=== PATIENT | female | born 1955 | race African-American/Black ===

== ENCOUNTER 2019-04-15 13:25 | Inpatient (IN) | payer OTHER ==
--- NOTE | 2019-04-15 14:14 | PDOC ---
History of Present Illness - General Chief Complaint: Weakness Stated Complaint: FALL Time Seen by Provider: 04/15/19 14:10 - History of Present Illness Initial Comments: 04/15/19 14:14 HPI: 64 y/o F with hx of sciatica BIBEMS for fall. Patient states she was walking on her way to work when both her legs gave out on her and she fell forward on to her hands and knees. She felt weakness in BL LE and was not able to get up without assist. Bystanders called EMS. She denied LOC, head trauma, chest pain, WOOD, dizziness, vertigo, SOB, muscle aches, abd pain, n/v, diaphoresis, dysuria. Patient is otherwise in her normal state of health and is tolerating PO; denies any recent travel or viral illness. PMHx: as noted above ROS: as noted SHx: 1 pack q2-3days tobacco use; occasional alcohol use; no rec drugs Allergies: NKDA ROS: GENERAL/CONSTITUTIONAL: No fever or chills. +LE weakness. HEAD, EYES, EARS, NOSE AND THROAT: No change in vision. No ear pain or discharge. No sore throat. CARDIOVASCULAR: No chest pain or shortness of breath RESPIRATORY: No cough, wheezing, or hemoptysis. GASTROINTESTINAL: No nausea, vomiting, diarrhea or constipation. GENITOURINARY: No dysuria, frequency, or change in urination. MUSCULOSKELETAL: No joint or muscle swelling or pain. No neck or back pain. SKIN: No rash NEUROLOGIC: No headache, vertigo, loss of consciousness. ENDOCRINE: No increased thirst. No abnormal weight change HEMATOLOGIC/LYMPHATIC: No anemia, easy bleeding, or history of blood clots. ALLERGIC/IMMUNOLOGIC: No hives or skin allergy. PE: GENERAL: Awake, alert, and fully oriented, no acute distress HEAD: No signs of trauma, normocephalic, atraumatic EYES: EOMI, sclera anicteric, conjunctiva clear ENT: Auricles normal inspection, hearing grossly normal, nares patent, oropharynx clear without exudates. Moist mucosa NECK: Normal ROM, no lymphadenopathy LUNGS: No increased work of breathing, symmetrical chest rise, clear to auscultation bilaterally, no wheezes, crackles or rhonchi HEART: Regular rate, regular rhythm, normal S1 and S2, systolic murmur right upper sternal border, peripheral pulses 2+ and equal bilaterally. ABDOMEN: Soft, nondistended, nontender, normoactive bowel sounds. No guarding, no rebound. No masses. No CVAT MUSCULOSKELETAL: Normal inspection, FROM NEUROLOGICAL: Cranial nerves II through XII grossly intact. Normal speech, negative FTN and HTS ataxia, gait unsteady 2/2 weakness; 3/5 str in BL hip flexors with remaining LE muscle groups 5/5 str SKIN: Warm, Dry, normal turgor, no rashes or lesions noted Past History - Past Medical History Allergies/Adverse Reactions: Allergies Allergy/AdvReac Type Severity Reaction Status Date / Time No Known Allergies Allergy Verified 04/15/19 13:50 COPD: No - Psycho Social/Smoking Cessation Hx Smoking History: Current every day smoker Have you smoked in the past 12 months: Yes Number of Cigarettes Smoked Daily: 5 Information on smoking cessation initiated: Yes Hx Alcohol Use: No Drug/Substance Use Hx: No *Physical Exam - Vital Signs Last Vital Signs Temp Pulse Resp BP Pulse Ox 98.3 F 102 H 18 173/104 H 96 04/15/19 13:48 04/15/19 13:48 04/15/19 13:48 04/15/19 13:48 04/15/19 13:48 ED Treatment Course - LABORATORY CBC & Chemistry Diagram: 04/15/19 15:00 04/15/19 15:00 Medical Decision Making - Medical Decision Making 04/15/19 15:10 64 y/o F with hx of sciatica BIBEMS for fall 2/2 to BL LE weakness. BP 173/104 HR 102, AF. PE notable for systolic murmur and 3/5 str in BL hip flexors. DDx includes TIA, arrhythmia, lyte abnormality, GBS, spinal stenosis, cauda equina. Cauda equina less likely given no signs of red flags i.e. incontinence, back pain, sensation changes. -cbc, cmp, coags, cardiac prof, bnp, ekg, cxr -ct head, CT C/T/L -neuro consult 04/15/19 20:57 CT with L4/5 moderate compression Gluc 400 and trop 0.15 repeat trop 0.34 and glu [address] Lazo 04/15/19 20:[address] Lovelace recommending MRI brain, C/T/L spine will consult Dr Shellie Lazo made aware 04/15/19 21:[address] Hensley; recommending trend trop q4hr and MRI brain to ruleout cva; tropinemia may be seen as a result of CVA discussed with MRI team and will accept patient for stat MRI 04/15/19 22:50 Brain MRI negative Discharge - Discharge Information Problems reviewed: Yes Clinical Impression/Diagnosis: Elevated troponin, Hyperglycemia Leg weakness Qualifiers: Laterality: bilateral Qualified Code(s): R29.898 - Other symptoms and signs involving the musculoskeletal system Condition: Guarded - Follow up/Referral - Patient Discharge Instructions - Post Discharge Activity
--- NOTE | 2019-04-15 14:50 | PDOC ---
Documentation entered by Mamta Torrez SCRIBE, acting as scribe for Jorge Tay MD. Jorge Tay MD: This documentation has been prepared by the Lore ortiz Brenda, SCRIBE, under my direction and personally reviewed by me in its entirety. I confirm that the documentation accurately reflects all work, treatment, procedures, and medical decision making performed by me. Attending Attestation - Resident Resident Name: Elle Hernández - ED Attending Attestation I have performed the following: I have examined & evaluated the patient, The case was reviewed & discussed with the resident, I agree w/resident's findings & plan, Exceptions are as noted - HPI HPI: 04/15/19 14:50 64 F with h/o sciatica presents to ED with fall and BLE weakness. Pt states that she was ambulating at work when she suddenly felt her legs weaken, causing her to fall to the ground. Pt denies any preceding lightheadedness/dizziness. Denies headstrike/LOC. Pt states that she was in her usual state of health this morning. Denies any weakness prior to the fall. Pt now complains of weakness in both legs preventing her from getting up on her own. Denies any weakness in either arm. No numbness/tingling. No incontinence. Pt denies any recent illness. No N/V/D. No CP/SOB. No abdominal pain. - Physicial Exam PE: 04/15/19 14:54 "GENERAL: Awake, alert, and fully oriented, in no acute distress. HEAD: No signs of trauma EYES: PERRLA, EOMI, sclera anicteric, conjunctiva clear ENT: Auricles normal inspection, hearing grossly normal, nares patent, oropharynx clear without exudates. Moist mucosa NECK: Nontender, no stepoffs, Normal ROM, supple, no lymphadenopathy, JVD, or masses LUNGS: Breath sounds equal, clear to auscultation bilaterally. No wheezes, and no crackles HEART: Regular rate and rhythm, normal S1 and S2, no murmurs, rubs or gallops ABDOMEN: Soft, nontender, normoactive bowel sounds. No guarding, no rebound. No masses EXTREMITIES: Normal range of motion, no edema. No clubbing or cyanosis. No cords, erythema, or tenderness NEUROLOGICAL: + diminished strength with BILATERAL hip and knee flexion, full pedal strength with dorsiflexion and plantarflexion, Cranial nerves II through XII intact. 5/5 strength and sensation in bilateral upper extremities, Normal speech, normal cerebellar function SKIN: Warm, Dry, normal turgor, no rashes or lesions noted. - Medical Decision Making 04/15/19 14:55 64 F with acute onset BLE weakness. Pt with weakness in BLE hip and knee flexion but preserved strength in bilateral plantar and dorsiflexion of feet. Inconsistent with CVA, as pt with no lateralizing symptoms. Possible GBS but atypical, as symptoms are not ascending. - Labs - CT head/c-t-l-spine - Neuro consult Pt signed out to oncoming attending at 4:30, pending labs, CT, and admission to hospital
[2019-04-15 15:57] LABS: BASO % 0.9 % (0-2.0); EOS % 1.9 % (0-4.5); HEMATOCRIT 41.2 % (32.4-45.2); HEMOGLOBIN 13.5 GM/dL (10.7-15.3); LYMPH % 18.9 % (8-40); MCHC 32.7 g/dl (32.0-36.0); MEAN CELL VOLUME 82.6 fl (80-96); MEAN PLT VOLUME 8.3 fl (7.5-11.1); MONO % 6.2 % (3.8-10.2); NEUT % 72.1 % (42.8-82.8); PLATELET COUNT 285 K/MM3 (134-434); RBC 4.98 M/mm3 (3.60-5.2); RDW 14.3 % (11.6-15.6); WHITE BLOOD COUNT 7.7 K/mm3 (4.0-10.0)
[2019-04-15 16:21] LABS: ACTIVATED PTT 31.7 SECONDS (25.2-36.5)
[2019-04-15 16:30] LABS: INR 0.89 (0.83-1.09); PROTHROMBIN TIME (PATIENT) 10.5 SEC (9.7-13.0)
[2019-04-15 16:35] LABS: BILIRUBIN,TOTAL 0.3 mg/dL (0.2-1); BLOOD UREA NITROGEN 17.3 mg/dL (7-18); CALCIUM 9.5 mg/dL (8.5-10.1); MAGNESIUM 2.2 mg/dL (1.8-2.4); N-TERMINAL BNP 116.5 pg/ml (5-125); PHOSPHOROUS 2.4 mg/dL (2.5-4.9); POTASSIUM 4.5 mmol/L (3.5-5.1); TOT PROT 7.4 g/dl (6.4-8.2)
[2019-04-15] MEDS ORDERED: ASPIRIN 81 MG CHEWABLE TABLETS PO ONE (18:10)
[2019-04-15] MEDS ORDERED: SODIUM CHLORIDE 1,000 ML IV STA (18:11)
[2019-04-15] MEDS ORDERED: ASPIRIN 81 MG CHEWABLE TABLETS ONE (18:23)
--- NOTE | 2019-04-15 22:39 | HP ---
Admitting History and Physical - Admission History of Present Illness: Pt is a 64 y/o female with PMH significant for sciatica who presented to ED with fall and BLE weakness. Pt states that she was ambulating to work when she suddenly felt her legs weaken, causing her to fall to the ground. Pt was than unable to get up. Pt denies any preceding lightheadedness/dizziness. Denies head trauma/LOC. Pt states that she was in her usual state of health that morning. Denies any weakness prior to the fall. Pt now complains of weakness in both legs preventing her from getting up on her own. Denies any weakness in either arm/No numbness/no tingling/no incontinence. - Past Surgical History Past Surgical History: Yes: None - Smoking History Smoking history: Current every day smoker Have you smoked in the past 12 months: Yes Aproximately how many cigarettes per day: 5 - Alcohol/Substance Use Hx Alcohol Use: No Home Medications - Allergies Allergies/Adverse Reactions: Allergies Allergy/AdvReac Type Severity Reaction Status Date / Time No Known Allergies Allergy Verified 04/15/19 13:50 Family Medical History Family History: Unremarkable Review of Systems - Review of Systems Constitutional: reports: Weakness Eyes: reports: No Symptoms HENT: reports: No Symptoms Neck: reports: No Symptoms Cardiovascular: reports: No Symptoms Respiratory: reports: No Symptoms Gastrointestinal: reports: No Symptoms Genitourinary: reports: No Symptoms Physical Examination Vital Signs: Vital Signs Temperature 98.3 F 04/15/19 13:48 Pulse Rate 102 H 04/15/19 13:48 Respiratory Rate 18 04/15/19 13:48 Blood Pressure 173/104 H 04/15/19 13:48 O2 Sat by Pulse Oximetry (%) 96 04/15/19 20:59 Constitutional: Yes: Well Nourished Eyes: Yes: WNL HENT: Yes: WNL Neck: Yes: WNL, Supple Cardiovascular: Yes: WNL, Regular Rate and Rhythm Respiratory: Yes: WNL, Regular, CTA Bilaterally Gastrointestinal: Yes: WNL, Normal Bowel Sounds, Soft Musculoskeletal: Yes: WNL Extremities: Yes: WNL Edema: No Neurological: Yes: WNL, Alert, Oriented ...Motor Strength: WNL Labs: CBC, BMP 04/15/19 15:00 04/15/19 15:00 Problem List - Problems (1) Near syncope Assessment/Plan: CT/MRI brain unremarkable Neuro/cardio consults Follow serial cpk/troponin Check echo Code(s): R55 - SYNCOPE AND COLLAPSE (2) Elevated troponin Assessment/Plan: Cont to follow cpk/troponin Code(s): R79.89 - OTHER SPECIFIED ABNORMAL FINDINGS OF BLOOD CHEMISTRY (3) Lumbar radiculopathy Assessment/Plan: CT spine Code(s): M54.16 - RADICULOPATHY, LUMBAR REGION (4) New onset type 1 diabetes mellitus, uncontrolled Code(s): E10.65 - TYPE 1 DIABETES MELLITUS WITH HYPERGLYCEMIA
[2019-04-16 00:12] VITALS: BMI 28.4
[2019-04-16] MEDS: INSULIN SLIDING SCALE (NOVOLOG) 1 VIAL SQ SCH ×4 (06:08→22:19)
[2019-04-16 07:11] LABS: BASO % 1.1 % (0-2.0); EOS % 4.9 % (0-4.5); HEMATOCRIT 37.4 % (32.4-45.2); HEMOGLOBIN 12.4 GM/dL (10.7-15.3); LYMPH % 27.9 % (8-40); MCH 27.3 pg (25.7-33.7); MCHC 33.3 g/dl (32.0-36.0); MEAN CELL VOLUME 81.9 fl (80-96); MEAN PLT VOLUME 7.7 fl (7.5-11.1); MONO % 6.4 % (3.8-10.2); NEUT % 59.7 % (42.8-82.8); PLATELET COUNT 275 K/MM3 (134-434); RBC 4.56 M/mm3 (3.60-5.2); RDW 14.2 % (11.6-15.6); WHITE BLOOD COUNT 7.1 K/mm3 (4.0-10.0)
[2019-04-16 07:48] LABS: ALBUMIN 3.3 g/dl (3.4-5.0); BILIRUBIN,TOTAL 0.6 mg/dL (0.2-1); BLOOD UREA NITROGEN 14.2 mg/dL (7-18); CALCIUM 8.9 mg/dL (8.5-10.1); CREATININE 0.8 mg/dL (0.55-1.3); POTASSIUM 3.9 mmol/L (3.5-5.1); TOT PROT 6.2 g/dl (6.4-8.2)
[2019-04-16] MEDS: HEPARIN NA (PORCINE) 5,000 UNITS/ML 1ML VIAL SQ SCH ×2 (09:25→22:12)
[2019-04-16] MEDS: ASPIRIN COATED 81 MG TABLET.EC PO SCH (09:25)
--- NOTE | 2019-04-16 09:40 | CON.CARD ---
Consult Consult Specialty:: Cardiology Referred by:: Dr. Lazo Reason for Consultation:: TnI abnormal - History of Present Illness Chief Complaint: Bilateral leg weakness History of Present Illness: 64 F smoker presents to ER with acute b/l LE weakness and fall. No other focal neuro sx. No CP No SOB No palps No edema No jaw pain No nausea ECG: NSR, poor R wave progression MRI brain, no acute CVA- chronic old small infarcts Initially HTN, but now normalized. A1c markedly elevated. 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's, CVA, Dementia, Migraine, Multiple Sclerosis, Peripheral Neuropathy, Parkinson's, Seizure, Syncope, TIA, Vertigo, Other Cardio/Vascular: No: AFIB, Aneurysm, Aortic Insufficiency, Aortic Stenosis, CAD , CHF, Deep Vein Thrombosis, HTN, Hyperlipdemia, IA, Mitral Insufficiency, Mitral Stenosis, Murmur, Pulmonary Hypertension, Other Pulmonary: No: Asthma, Bronchitis, Cancer, COPD, O2 Dependent, Pneumonia, Previously Intubated, Pulmonary Embolus, Pulmonary Fibrosis, Sleep Apnea, Other Gastrointestinal: No: Ascites, Cancer, Constipation, Crohn's Disease, Diverticulitis, Diverticulosis, Esophageal Varices, Gastritis, GERD, GI Bleed, Hemorrhoids, Hiatal Hernia, Inflamatory Bowel Disease, Irritable Bowel Disease, Pancreatitis, Peptic Ulcer Disease, Ulcerative Colitis, Other Hepatobiliary: No: Cirrhosis, Cholelithiasis, Cholecystitis, Choledocholithiasis , Hepatitis A, Hepatitis B, Hepatitis C, Other Renal/: No: Renal Failure, Renal Inusuff, BPH, Cancer, Hematuria, Hemodialysis , Neurogenic Bladder, Renal Calculi, UTI, Other ...: No Heme/Onc: No: Anemia, B12 Deficiency, Bleeding Disorder, Cancer, Current Chemotherapy, Current Radiation Therapy, Hemochromatosis, Hypercoaguable State, Myeloproliferative Synd, Sickle Cell Disease, Sickle Cell Trait, Thrombocytopenia, Other Psych: No: Addictions, Anxiety, Bipolar, Depression, Panic, Psychosis, Schizophrenia, Other Musculoskeletal: No: Bursitis, Chronic low back pain, Hemiparesis, Hemiplegia, Osteoarthritis, Paraplegia, Other Rheumatology: No: Fibromyalgia, Gout, Lupus, Rheumatoid Arthritis, Sarcoidosis, Vasculitis, Other ENT: No: Allergic Rhinitis, Sinusitis, Other Endocrine: No: Archie's Disease, [place]'s Disease, Diabetes Insipidus, Diabetes Mellitus, Hyperparathyroidism, Hyperthyroidism, Hypothyroidism, Osteopenia, SIADH, Other - Past Surgical History Past Surgical History: No: None, AAA Repair, AICD, Amputation, Appendectomy, Arthrosocopy, AV Fistula/Graft, Bariatric Surgery, Breast Biopsy, Bypass, CABG, Carotid Endarterectomy, Cataract Removal, Cholecystectomy, Colectomy, Colonoscopy, Colostomy, Craniotomy, , Cystectomy, Hernia Repair, Hysterectomy, Ileal Conduit, Ileosotomy, Joint Replacement, Kidney Transplant, Laminectomy, Liver Transplant, Mastectomy, Nephrectomy, Oopherectomy, Orchiectomy, Permanent Pacemaker, Prostatectomy, Splenectomy, Stent, Thoracotomy , TURP, Tonsillectomy, Tubal Ligation, Upper Endoscopy, Valve Replacement, Vasectomy, Vein Stripping/Ligation - Alcohol/Substance Use Hx Alcohol Use: Yes (OCCASSIONAL) - Smoking History Smoking history: Current every day smoker Have you smoked in the past 12 months: Yes Aproximately how many cigarettes per day: 5 - Social History Occupation: works at [employer] History of Recent Travel: No Home Medications - Allergies Allergies/Adverse Reactions: Allergies Allergy/AdvReac Type Severity Reaction Status Date / Time No Known Allergies Allergy Verified 04/15/19 13:50 Family Medical History Family History: Unremarkable (non-contrib) Review of Systems - Review of Systems Constitutional: reports: No Symptoms Eyes: reports: No Symptoms HENT: reports: No Symptoms Neck: reports: No Symptoms Cardiovascular: reports: No Symptoms Respiratory: reports: No Symptoms Gastrointestinal: reports: No Symptoms Genitourinary: reports: No Symptoms Breasts: reports: No Symptoms Reported Musculoskeletal: reports: No Symptoms Neurological: reports: Weakness Endocrine: denies: No Symptoms, Excessive Sweating, Flushing, Increased Hunger, Increased Thirst, Intolerance to Cold, Intolerance to Heat, Unexplained Weight Gain, Unexplained Weight Loss, Other Hematology/Lymphatic: denies: No Symptoms, Easily Bruised, Excessive Bleeding, Swollen Glands, Other Psychiatric: denies: No Symptoms, Altered Sleep Pattern, Anxiety, Depression, Hallucinations, Panic, Paranoia, Suicidal, Other - Risk Factors Known Risk Factors: Yes: Diabetes Mellitus, Hypertension Vital Signs: Vital Signs Temperature 98.1 F 04/16/19 02:04 Pulse Rate 88 04/16/19 02:04 Respiratory Rate 18 04/16/19 02:04 Blood Pressure 156/87 04/16/19 02:04 O2 Sat by Pulse Oximetry (%) 98 04/16/19 01:19 Constitutional: Yes: Calm Respiratory: Yes: CTA Bilaterally Gastrointestinal: Yes: Soft Cardiovascular: Yes: Regular Rate and Rhythm JVD: No Carotid Bruit: No Heart Sounds: Yes: S1, S2 (rrr) Edema: No Neurological: Yes: Alert, Oriented - Other Data Labs, Other Data: CBC, BMP 04/16/19 06:23 04/16/19 06:23 INR, PTT INR 0.89 (0.83-1.09) 04/15/19 15:00 Troponin, BNP 04/15/19 04/15/19 15:00 19:20 Troponin I 0.15 H 0.34 H B-Natriuretic Peptide 116.5 Troponin, BNP 04/15/19 04/15/19 15:00 19:20 Troponin I 0.15 H 0.34 H B-Natriuretic Peptide 116.5 Laboratory Tests 04/15/19 04/15/19 04/15/19 15:00 15:00 19:20 WBC Hgb Plt Count INR 0.89 Sodium Potassium Creatinine Hemoglobin A1c % Alkaline Phosphatase Creatine Kinase 110 Troponin I 0.15 H 0.34 H 04/16/19 04/16/19 04/16/19 06:23 06:23 06:23 WBC 7.1 Hgb 12.4 Plt Count 275 INR Sodium 137 Potassium 3.9 Creatinine 0.8 Hemoglobin A1c % 14.6 H Alkaline Phosphatase 73 Creatine Kinase Troponin I Echo: Pending Imaging - Results Chest X-ray: Report Reviewed EKG: Image Reviewed (NSR 91bpm, Poor R wave progression, no acute changes) Assessment/Plan IMP: New onset DM LE weakness, lumbar stenosis (Brain MRI negative) Borderline HTN Equivocal range TnI REC: 1. Neuro w/u 2. Glucose control as per PMD 3. Echo for EF assessment. 4. Equivocal TnI with no cardiac sx and benign ECG. If echo WNL, can likely defer further cardiac w/u until neuro sx resolve. Eventual stress test once acute sx resolve/ more fully investigated. 5. Monitor BP, goal < 140/90 6. ASA if no neuro contraindication
--- NOTE | 2019-04-16 10:26 | CON.NEURO ---
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, CVA, Dementia, Migraine, Multiple Sclerosis, Peripheral Neuropathy, Parkinson's, Seizure, Syncope, TIA, Vertigo, Other Cardio/Vascular: No: AFIB, Aneurysm, Aortic Insufficiency, Aortic Stenosis, CAD , CHF, Deep Vein Thrombosis, HTN, Hyperlipdemia, VT, Mitral Insufficiency, Mitral Stenosis, Murmur, Pulmonary Hypertension, Other Pulmonary: No: Asthma, Bronchitis, Cancer, COPD, O2 Dependent, Pneumonia, Previously Intubated, Pulmonary Embolus, Pulmonary Fibrosis, Sleep Apnea, Other Gastrointestinal: No: Ascites, Cancer, Constipation, Crohn's Disease, Diverticulitis, Diverticulosis, Esophageal Varices, Gastritis, GERD, GI Bleed, Hemorrhoids, Hiatal Hernia, Inflamatory Bowel Disease, Irritable Bowel Disease, Pancreatitis, Peptic Ulcer Disease, Ulcerative Colitis, Other Hepatobiliary: No: Cirrhosis, Cholelithiasis, Cholecystitis, Choledocholithiasis , Hepatitis A, Hepatitis B, Hepatitis C, Other Renal/: No: Renal Failure, Renal Inusuff, BPH, Cancer, Hematuria, Hemodialysis , Neurogenic Bladder, Renal Calculi, UTI, Other ...: No Psych: No: Addictions, Anxiety, Bipolar, Depression, Panic, Psychosis, Schizophrenia, Other Musculoskeletal: No: Bursitis, Chronic low back pain, Hemiparesis, Hemiplegia, Osteoarthritis, Paraplegia, Other Rheumatology: No: Fibromyalgia, Gout, Lupus, Rheumatoid Arthritis, Sarcoidosis, Vasculitis, Other ENT: No: Allergic Rhinitis, Sinusitis, Other Endocrine: No: [place]'s Disease, Anthony's Disease, Diabetes Insipidus, Diabetes Mellitus, Hyperparathyroidism, Hyperthyroidism, Hypothyroidism, Osteopenia, SIADH, Other - Past Surgical History Past Surgical History: No: None, AAA Repair, AICD, Amputation, Appendectomy, Arthrosocopy, AV Fistula/Graft, Bariatric Surgery, Breast Biopsy, Bypass, CABG, Carotid Endarterectomy, Cataract Removal, Cholecystectomy, Colectomy, Colonoscopy, Colostomy, Craniotomy, , Cystectomy, Hernia Repair, Hysterectomy, Ileal Conduit, Ileosotomy, Joint Replacement, Kidney Transplant, Laminectomy, Liver Transplant, Mastectomy, Nephrectomy, Oopherectomy, Orchiectomy, Permanent Pacemaker, Prostatectomy, Splenectomy, Stent, Thoracotomy , TURP, Tonsillectomy, Tubal Ligation, Upper Endoscopy, Valve Replacement, Vasectomy, Vein Stripping/Ligation - Alcohol/Substance Use Hx Alcohol Use: Yes (OCCASSIONAL) - Smoking History Smoking history: Current every day smoker Have you smoked in the past 12 months: Yes Aproximately how many cigarettes per day: 5 - Social History Occupation: works at [email or web address] History of Recent Travel: No Home Medications - Allergies Allergies/Adverse Reactions: Allergies Allergy/AdvReac Type Severity Reaction Status Date / Time No Known Allergies Allergy Verified 04/15/19 13:50 Physical Exam-Neuro Vital Signs: Vital Signs Temperature 98.1 F 04/16/19 02:04 Pulse Rate 88 04/16/19 02:04 Respiratory Rate 18 04/16/19 02:04 Blood Pressure 156/87 04/16/19 02:04 O2 Sat by Pulse Oximetry (%) 98 04/16/19 01:19 Labs: CBC, BMP 04/16/19 06:23 04/16/19 06:23 INR, PTT INR 0.89 (0.83-1.09) 04/15/19 15:00 Assessment/Plan cc trasient leg weakness HPI 64 year old female history of sciatica, DM, was brought to hospital for both leg giving way and feeling weaknes. It came about suddenly. SHe denies any trauma, fall , cancer , fever. There was no incontinence or sensory loss in lower extremity. it was no gradual progression either. Patient is almot back to normal, mri of brain and ct of whole spine is normal. PMHx: as noted above ROS: as noted SHx: 1 pack q2-3days tobacco use; occasional alcohol use; no rec drugs Allergies: NKDA Medication Insulin, apsirin statin NEUROLOGICAL EXAMINATOIN Alert oriented x 3, cn all intact motor 5/5 in both upper and lower extremity she has slight sensory dysthesia on left lateral side of thigh and calf( old radiculopathy) reflex are preesnt, right knee is grade and left knee is grade 1 and ankle reflex is diminished slr is negative she is able to walk , difficulty on toes could do partial squat ct of whole spine and mri of brain wa sunremarkable Assessment/Plan 64 year old female with history of lumbar radiculopathy nad DM, has transient sudden onset both leg weakness wth hyper glycemia ( BS 400S), Most likley it could be transient ischemic due to hyperglycemia Plan: glycemic control - aspirin and statin - mri of whole spine is pending -pt continue to follow Thnaking you so much Mauricio Rockwell MD
--- NOTE | 2019-04-16 10:48 | ECHO ---
Name: JAS MORALES J Exam:Adult Echocardiogram Study Date: 04/16/2019 08:50 AM Age: 64 yrs Height: 66 in Weight: 190 lb BSA: 2.0 m2 MMode/2D Measurements & Calculations RVDd: 3.3 cm Ao root diam: 2.9 cm IVSd: 1.4 cm LA dimension: 3.1 cm LVIDd: 4.0 cm ACS: 1.9 cm LVIDs: 2.7 cm LVPWd: 1.4 cm EDV(Tyler): 70.4 ml LAV (MOD-bp): 54.0 ml ESV(Teich): 26.8 ml TAPSE: 2.2 cm RV S Boogie: 22.1 cm/sec Doppler Measurements & Calculations MV E max boogie: 55.3 cm/sec Ao V2 max: 141.2 cm/sec MV A max boogie: 108.6 cm/sec Ao max P.0 mmHg MV E/A: 0.51 Ao V2 mean: 95.5 cm/sec MV dec time: 0.12 sec Ao mean P.2 mmHg Ao V2 VTI: 22.2 cm LV V1 max P.7 mmHg TR max boogie: 226.7 cm/sec LV V1 mean P.7 mmHg TR max P.6 mmHg LV V1 max: 95.8 cm/sec LV V1 mean: 59.6 cm/sec LV V1 VTI: 18.5 cm PA V2 max: 92.3 cm/sec Med Peak E' Boogie: 5.8 cm/sec PA max P.4 mmHg Med E/e': 9.6 Lat Peak E' Boogie: 4.5 cm/sec Lat E/e': 12.3 Pulm Sys Boogie: 69.6 cm/sec Pulm Naidu Boogie: 39.5 cm/sec Pulm S/D: 1.8 Tech Comments Techician: Vida Cardoso. Left Ventricle There is mild concentric left ventricular hypertrophy. Ejection Fraction = 55-60%. The transmitral sp ectral Doppler flow pattern is suggestive of impaired LV relaxation. Right Ventricle The right ventricle is normal in size and function. Atria The left atrium is mildly dilated. Right atrial size is normal. Mitral Valve The mitral valve is normal in structure and function. There is no mitral valve stenosis. There is mil d mitral regurgitation. Tricuspid Valve The tricuspid valve is normal in structure and function. Aortic Valve The aortic valve opens well. No hemodynamically significant valvular aortic stenosis. Mild aortic regurgitation. Pulmonic Valve The pulmonic valve is not well seen, but is grossly normal. There is no pulmonic valvular stenosis. T race to mild pulmonic valvular regurgitation. Great Vessels The aortic root is normal size. Pericardium/Pleura There is no pericardial effusion. Interpretation Summary There is mild concentric left ventricular hypertrophy. Ejection Fraction = 55-60%. The transmitral spectral Doppler flow pattern is suggestive of impaired LV relaxation. The left atrium is mildly dilated. There is mild mitral regurgitation. Mild aortic regurgitation. There is no pericardial effusion. MD Mc *Shellie 04/16/2019 10:47 AM
--- NOTE | 2019-04-16 14:00 | EKG ---
Test Reason : Blood Pressure : / mmHG Vent. Rate : 089 BPM Atrial Rate : 089 BPM P-R Int : 150 ms QRS Dur : 084 ms QT Int : 378 ms P-R-T Axes : 053 -06 042 degrees QTc Int : 459 ms NORMAL SINUS RHYTHM POSSIBLE LEFT ATRIAL ENLARGEMENT WHEN COMPARED WITH ECG OF 15-APR-2019 15:22, NO SIGNIFICANT CHANGE WAS FOUND Confirmed by DANAY COREAS MD ([id number]) on 04/16/2019 1:59:51 PM Referred By: Confirmed By:DANAY COREAS MD
--- NOTE | 2019-04-16 14:07 | EKG ---
Test Reason : Blood Pressure : / mmHG Vent. Rate : 091 BPM Atrial Rate : 091 BPM P-R Int : 142 ms QRS Dur : 080 ms QT Int : 356 ms P-R-T Axes : 047 001 038 degrees QTc Int : 437 ms NORMAL SINUS RHYTHM POSSIBLE LEFT ATRIAL ENLARGEMENT POOR R WAVE PROGRESSION ABNORMAL ECG NO PREVIOUS ECGS AVAILABLE Confirmed by DANAY COREAS MD ([id number]) on 04/16/2019 2:06:56 PM Referred By: Confirmed By:DANAY COREAS MD
--- NOTE | 2019-04-16 21:36 | PN ---
Progress Note, Physician - Current Medication List Current Medications: Active Medications Aspirin (Ecotrin -) 81 mg PO DAILY [facility] Last Admin: 04/16/19 09:25 Dose: 81 mg Atorvastatin Calcium (Lipitor -) 40 mg PO HS [facility] Heparin Sodium (Porcine) (Heparin -) 5,000 unit SQ BID [facility] Last Admin: 04/16/19 09:25 Dose: 5,000 unit Insulin Aspart (Novolog Vial Sliding Scale -) 1 vial SQ ACHS [facility]; Protocol Last Admin: 04/16/19 15:37 Dose: 6 units - Objective Vital Signs: Vital Signs Temperature 98.3 F 04/16/19 18:00 Pulse Rate 105 H 04/16/19 18:00 Respiratory Rate 18 04/16/19 18:00 Blood Pressure 136/81 04/16/19 18:00 O2 Sat by Pulse Oximetry (%) 98 04/16/19 09:00 Labs: CBC, BMP 04/16/19 06:23 04/16/19 06:23 INR, PTT INR 0.89 (0.83-1.09) 04/15/19 15:00
[2019-04-16] MEDS: ATORVASTATIN CA 40 MG TABLET (FP) PO SCH (22:12)
[2019-04-17] MEDS: INSULIN SLIDING SCALE (NOVOLOG) 1 VIAL SQ SCH ×4 (06:49→23:01)
--- NOTE | 2019-04-17 09:05 | PN ---
Progress Note, Physician Chief Complaint: now walking around room Feels stronger. Denies CP or SOB Echo yest w/ normal EF, LVH. TELE: NSR. - Current Medication List Current Medications: Active Medications Aspirin (Ecotrin -) 81 mg PO DAILY [facility] Last Admin: 04/16/19 09:25 Dose: 81 mg Atorvastatin Calcium (Lipitor -) 40 mg PO HS [facility] Last Admin: 04/16/19 22:12 Dose: 40 mg Heparin Sodium (Porcine) (Heparin -) 5,000 unit SQ BID [facility] Last Admin: 04/16/19 22:12 Dose: 5,000 unit Insulin Aspart (Novolog Vial Sliding Scale -) 1 vial SQ ACHS [facility]; Protocol Last Admin: 04/17/19 06:49 Dose: 2 units - Objective Vital Signs: Vital Signs Temperature 98.1 F 04/17/19 01:59 Pulse Rate 104 H 04/17/19 01:59 Respiratory Rate 18 04/17/19 08:17 Blood Pressure 138/84 04/17/19 06:00 O2 Sat by Pulse Oximetry (%) 99 04/17/19 08:17 Constitutional: Yes: No Distress Cardiovascular: Yes: Regular Rate and Rhythm Respiratory: Yes: CTA Bilaterally Gastrointestinal: Yes: Soft (NT) Edema: No Neurological: Yes: Alert, Oriented ...Motor Strength: WNL Labs: CBC, BMP 04/16/19 06:23 04/16/19 06:23 INR, PTT INR 0.89 (0.83-1.09) 04/15/19 15:00 Laboratory Tests 04/15/19 04/15/19 15:00 19:20 Troponin I 0.15 H 0.34 H - ....Imaging EKG: Image Reviewed Assessment/Plan Assessment/Plan IMP: New onset DM LE weakness, lumbar stenosis (Brain MRI negative) Borderline HTN Equivocal range TnI REC: 1. Neuro w/u- transient weakness suspected secondary to marked hyperglycemia and resulting transient neuropathy 2. Glucose control as per PMD 3. Echo w normal EF, LVH. 4. Equivocal TnI with no cardiac sx and benign ECG. Obtain 3rd set enzymes; plan for Lexiscan MPI Friday. 5. BP currently at goal < 140/90 6. ASA as per Neuro 7. LDL 92; goal 70mg/dl (DM---> ASHD equivalent risk factor). Continue Atorva 40
[2019-04-17] MEDS: ASPIRIN COATED 81 MG TABLET.EC PO SCH (09:33)
[2019-04-17] MEDS: HEPARIN NA (PORCINE) 5,000 UNITS/ML 1ML VIAL SQ SCH ×2 (09:34→22:39)
--- NOTE | 2019-04-17 16:58 | PN ---
Progress Note (short form) - Note Progress Note: 64 year old female history of sciatica, DM, was brought to hospital for both leg giving way and feeling weaknes. It came about suddenly. SHe denies any trauma, fall , cancer , fever. There was no incontinence or sensory loss in lower extremity. it was no gradual progression either. Patient is almot back to normal, mri of brain and ct of whole spine is normal. Patient is feeling much better and able to walk around NEUROLOGICAL EXAMINATOIN Alert oriented x 3, cn all intact motor 5/5 in both upper and lower extremity she has slight sensory dysthesia on left lateral side of thigh and calf( old radiculopathy) reflex are preesnt, right knee is grade and left knee is grade 1 and ankle reflex is diminished slr is negative she is able to walk , difficulty on toes could do partial squat ct of whole spine and mri of brain wa sunremarkable Assessment/Plan 64 year old female with history of lumbar radiculopathy nad DM, has transient sudden onset both leg weakness wth hyper glycemia ( BS 400S), Most likley it could be transient ischemic due to hyperglycemia Plan: glycemic control - continue spirin and statin -pt continue to follow Thnaking you so much Mauricio Rockwell MD
[2019-04-17] MEDS: metFORMIN HCL 500 MG TABLET (FP) PO SCH (17:28)
--- NOTE | 2019-04-17 22:02 | PN ---
Progress Note, Physician - Current Medication List Current Medications: Active Medications Aspirin (Ecotrin -) 81 mg PO DAILY [facility] Last Admin: 04/17/19 09:33 Dose: 81 mg Atorvastatin Calcium (Lipitor -) 40 mg PO HS [facility] Last Admin: 04/16/19 22:12 Dose: 40 mg Heparin Sodium (Porcine) (Heparin -) 5,000 unit SQ BID [facility] Last Admin: 04/17/19 09:34 Dose: 5,000 unit Insulin Aspart (Novolog Vial Sliding Scale -) [address] [facility]; Protocol Last Admin: 04/17/19 17:28 Dose: 8 units Metformin HCl (Glucophage -) 1,000 mg PO BID@0700,1630 [facility] Last Admin: 04/17/19 17:28 Dose: 1,000 mg Sitagliptin Phosphate (Januvia -) 100 mg PO DAILY@0700 [facility] - Objective Vital Signs: Vital Signs Temperature 97.8 F 04/17/19 18:00 Pulse Rate 101 H 04/17/19 18:00 Respiratory Rate 20 04/17/19 18:00 Blood Pressure 158/96 04/17/19 18:00 O2 Sat by Pulse Oximetry (%) 99 04/17/19 08:17 Labs: CBC, BMP 04/16/19 06:23 04/16/19 06:23 INR, PTT INR 0.89 (0.83-1.09) 04/15/19 15:00
[2019-04-17] MEDS: ATORVASTATIN CA 40 MG TABLET (FP) PO SCH (23:01)
[2019-04-18] MEDS: INSULIN SLIDING SCALE (NOVOLOG) 1 VIAL SQ SCH ×4 (07:15→22:34)
[2019-04-18] MEDS: metFORMIN HCL 500 MG TABLET (FP) PO SCH ×2 (07:17→17:08)
--- NOTE | 2019-04-18 09:16 | PN ---
Progress Note, Physician Chief Complaint: feeling better Walking No CP or SOB TELE: NSR, sinus tach 3rd TNI normal - Current Medication List Current Medications: Active Medications Aspirin (Ecotrin -) 81 mg PO DAILY [facility] Last Admin: 04/17/19 09:33 Dose: 81 mg Atorvastatin Calcium (Lipitor -) 40 mg PO HS [facility] Last Admin: 04/17/19 23:01 Dose: 40 mg Heparin Sodium (Porcine) (Heparin -) 5,000 unit SQ BID [facility] Last Admin: 04/17/19 22:39 Dose: 5,000 unit Insulin Aspart (Novolog Vial Sliding Scale -) 1 vial SQ ACHS [facility]; Protocol Last Admin: 04/18/19 07:15 Dose: 6 units Metformin HCl (Glucophage -) 1,000 mg PO BID@0700,1630 [facility] Last Admin: 04/18/19 07:17 Dose: 1,000 mg Sitagliptin Phosphate (Januvia -) 100 mg PO DAILY@0700 [facility] - Objective Vital Signs: Vital Signs Temperature 98 F 04/18/19 01:52 Pulse Rate 92 H 04/18/19 01:52 Respiratory Rate 04/18/19 09:00 Blood Pressure 123/86 04/18/19 01:52 O2 Sat by Pulse Oximetry (%) 100 04/18/19 09:00 Constitutional: Yes: No Distress, Calm Cardiovascular: Yes: Regular Rate and Rhythm Respiratory: Yes: CTA Bilaterally Gastrointestinal: Yes: Soft (NT) Edema: No Neurological: Yes: Alert, Oriented Labs: CBC, BMP 04/16/19 06:23 04/16/19 06:23 INR, PTT INR 0.89 (0.83-1.09) 04/15/19 15:00 - ....Imaging EKG: Image Reviewed Assessment/Plan IMP: New onset DM LE weakness, lumbar stenosis (Brain MRI negative) Borderline HTN Equivocal range TnI REC: 1. Neuro w/u- transient weakness suspected secondary to marked hyperglycemia and resulting transient neuropathy 2. Glucose control as per PMD 3. Echo w normal EF, LVH. 4. Equivocal TnI with no cardiac sx and benign ECG. Lexiscan MPI Friday for further CV risk stratification. 5. BP currently at goal < 140/90 6. ASA as per Neuro 7. LDL 92; goal 70mg/dl (DM---> ASHD equivalent risk factor). Continue Atorva 40 If stress test WNL, can d/c tele and d/c home from the cardiac perspective with outpatient f/u 2-3 weeks.
[2019-04-18] MEDS: ASPIRIN COATED 81 MG TABLET.EC PO SCH (10:26)
[2019-04-18] MEDS: HEPARIN NA (PORCINE) 5,000 UNITS/ML 1ML VIAL SQ SCH ×2 (10:26→22:33)
--- NOTE | 2019-04-18 11:54 | PN ---
Progress Note (short form) - Note Progress Note: 64 year old female history of sciatica, DM, was brought to hospital for both leg giving way and feeling weaknes. It came about suddenly. SHe denies any trauma, fall , cancer , fever. There was no incontinence or sensory loss in lower extremity. it was no gradual progression either. Patient is almot back to normal, mri of brain and ct of whole spine is normal. Patient is feeling much better and able to walk around , she has stress test for tomorrow NEUROLOGICAL EXAMINATOIN Alert oriented x 3, cn all intact motor 5/5 in both upper and lower extremity she has slight sensory dysthesia on left lateral side of thigh and calf( old radiculopathy) reflex are preesnt, right knee is grade and left knee is grade 1 and ankle reflex is diminished slr is negative she is able to walk , difficulty on toes could do partial squat ct of whole spine and mri of brain was unremarkable Assessment/Plan 64 year old female with history of lumbar radiculopathy nad DM, has transient sudden onset both leg weakness wth hyper glycemia ( BS 400S), Most likley it could be transient ischemic due to hyperglycemia, she walking around and back to her normal self Plan: glycemic control - continue spirin and statin -PT continue to follow Thnaking you so much Mauricio Rockwell MD
--- NOTE | 2019-04-18 20:11 | PN ---
Progress Note, Physician History of Present Illness: Feeling better - Current Medication List Current Medications: Active Medications Aspirin (Ecotrin -) 81 mg PO DAILY [facility] Last Admin: 04/18/19 10:26 Dose: 81 mg Atorvastatin Calcium (Lipitor -) 40 mg PO HS [facility] Last Admin: 04/17/19 23:01 Dose: 40 mg Heparin Sodium (Porcine) (Heparin -) 5,000 unit SQ BID [facility] Last Admin: 04/18/19 10:26 Dose: 5,000 unit Insulin Aspart (Novolog Vial Sliding Scale -) 1 vial SQ ACHS [facility]; Protocol Last Admin: 04/18/19 17:08 Dose: 4 units Metformin HCl (Glucophage -) 1,000 mg PO BID@0700,1630 [facility] Last Admin: 04/18/19 17:08 Dose: 1,000 mg Sitagliptin Phosphate (Januvia -) 100 mg PO DAILY@0700 [facility] - Objective Vital Signs: Vital Signs Temperature 98.1 F 04/18/19 18:00 Pulse Rate 93 H 04/18/19 18:00 Respiratory Rate 20 04/18/19 18:00 Blood Pressure 118/84 04/18/19 18:00 O2 Sat by Pulse Oximetry (%) 100 04/18/19 09:00 Neck: Yes: WNL, Supple Cardiovascular: Yes: WNL, Regular Rate and Rhythm Respiratory: Yes: WNL, Regular, CTA Bilaterally Gastrointestinal: Yes: WNL, Normal Bowel Sounds, Soft, Abdomen, Obese Edema: No Labs: CBC, BMP 04/16/19 06:23 04/16/19 06:23 INR, PTT INR 0.89 (0.83-1.09) 04/15/19 15:00 Problem List - Problems (1) Near syncope Assessment/Plan: CT/MRI brain unremarkable Echo noted no acute changes ?Due to uncontrolled/new onset diabetes Code(s): R55 - SYNCOPE AND COLLAPSE (2) Elevated troponin Assessment/Plan: Pt for stress test in am Code(s): R79.89 - OTHER SPECIFIED ABNORMAL FINDINGS OF BLOOD CHEMISTRY (3) New onset type 1 diabetes mellitus, uncontrolled Assessment/Plan: Cont metformin/januvia Code(s): E10.65 - TYPE 1 DIABETES MELLITUS WITH HYPERGLYCEMIA (4) Lumbar radiculopathy Assessment/Plan: CT spine did not show any acute changes Code(s): M54.16 - RADICULOPATHY, LUMBAR REGION
[2019-04-18] MEDS: ATORVASTATIN CA 40 MG TABLET (FP) PO SCH (22:34)
[2019-04-19] MEDS: INSULIN SLIDING SCALE (NOVOLOG) 1 VIAL SQ SCH ×2 (07:10→12:22)
[2019-04-19] MEDS: metFORMIN HCL 500 MG TABLET (FP) PO SCH (07:10)
--- NOTE | 2019-04-19 09:31 | PN ---
Progress Note, Physician - Current Medication List Current Medications: Active Medications Aspirin (Ecotrin -) 81 mg PO DAILY [facility] Last Admin: 04/18/19 10:26 Dose: 81 mg Atorvastatin Calcium (Lipitor -) 40 mg PO HS [facility] Last Admin: 04/18/19 22:34 Dose: 40 mg Heparin Sodium (Porcine) (Heparin -) 5,000 unit SQ BID [facility] Last Admin: 04/18/19 22:33 Dose: 5,000 unit Insulin Aspart (Novolog Vial Sliding Scale -) 1 vial SQ ACHS [facility]; Protocol Last Admin: 04/19/19 07:10 Dose: Not Given Metformin HCl (Glucophage -) 1,000 mg PO BID@0700,1630 [facility] Last Admin: 04/19/19 07:10 Dose: Not Given Sitagliptin Phosphate (Januvia -) 100 mg PO DAILY@0700 [facility] - Objective Vital Signs: Vital Signs Temperature 98 F 04/19/19 08:20 Pulse Rate 70 04/19/19 08:20 Respiratory Rate 18 04/19/19 08:20 Blood Pressure 154/70 04/19/19 08:20 O2 Sat by Pulse Oximetry (%) 100 04/18/19 21:00 Labs: CBC, BMP 04/16/19 06:23 04/16/19 06:23 INR, PTT INR 0.89 (0.83-1.09) 04/15/19 15:00 Assessment/Plan IMP: New onset DM LE weakness, lumbar stenosis (Brain MRI negative) Borderline HTN Equivocal range TnI REC: 1. Neuro w/u- transient weakness suspected secondary to marked hyperglycemia and resulting transient neuropathy 2. Glucose control as per PMD 3. Echo w normal EF, LVH. 4. Equivocal TnI with no cardiac sx and benign ECG. Lexiscan MPI Friday for further CV risk stratification. 5. BP currently at goal < 140/90 6. ASA as per Neuro 7. LDL 92; goal 70mg/dl (DM---> ASHD equivalent risk factor). Continue Atorva 40 If stress test WNL, can d/c tele and d/c home from the cardiac perspective with outpatient f/u 2-3 weeks.
[2019-04-19] MEDS ORDERED: REGADENOSON 0.4 MG/5 ML PRE-FILLED SYRINGE IVPUSH ONE ×2 (09:42→10:00)
[2019-04-19] MEDS: HEPARIN NA (PORCINE) 5,000 UNITS/ML 1ML VIAL SQ SCH (13:53)
[2019-04-19] MEDS: ASPIRIN COATED 81 MG TABLET.EC PO SCH (13:53)
[2019-04-19 15:10] VITALS: BP 154/80; PULSE 79; TEMP 98.2
--- NOTE | 2019-04-19 15:39 | PN ---
Progress Note (short form) - Note Progress Note: s: no chest pain, palps, dizziness, dyspnea TELE: NSR, sinus tach Current Medications Aspirin (Ecotrin -) 81 mg PO DAILY [facility] Last Admin: 04/19/19 13:53 Dose: 81 mg Atorvastatin Calcium (Lipitor -) 40 mg PO HS [facility] Last Admin: 04/18/19 22:34 Dose: 40 mg Heparin Sodium (Porcine) (Heparin -) 5,000 unit SQ BID [facility] Last Admin: 04/19/19 13:53 Dose: 5,000 unit Insulin Aspart (Novolog Vial Sliding Scale -) 1 vial SQ ACHS [facility]; Protocol Last Admin: 04/19/19 12:22 Dose: 6 units Metformin HCl (Glucophage -) 1,000 mg PO BID@0700,1630 [facility] Last Admin: 04/19/19 07:10 Dose: Not Given Sitagliptin Phosphate (Januvia -) 100 mg PO DAILY@0700 [facility] Vital Signs Period Temp Pulse Resp BP Sys/Naidu Pulse Ox Last 24 Hr 98 F-98.2 F 70-93 16-20 118-154/70-86 100 Constitutional: Yes: No Distress, Calm Cardiovascular: Yes: Regular Rate and Rhythm Respiratory: Yes: CTA Bilaterally Gastrointestinal: Yes: Soft (NT) Edema: No Neurological: Yes: Alert, Oriented no jaundice, diaphoresis not agitated - ....Imaging EKG: Image Reviewed Assessment/Plan IMP: New onset DM LE weakness, lumbar stenosis (Brain MRI negative) Borderline HTN Equivocal range TnI REC: 1. Neuro w/u- transient weakness suspected secondary to marked hyperglycemia and resulting transient neuropathy 2. Glucose control as per PMD 3. Echo w normal EF, LVH. 4. Equivocal TnI with no cardiac sx and benign ECG, unlikely ACS 5. BP currently at goal < 140/90 6. ASA as per Neuro 7. LDL 92; goal 70mg/dl (DM---> ASHD equivalent risk factor). Continue Atorva 40 8. mibi today showed no ischemia, stable for dc from cardiac perspective. follow up in 2-3 weeks as outpatient
--- NOTE | 2019-04-19 16:05 | PN ---
Progress Note (short form) - Note Progress Note: 64 year old female history of sciatica, DM, was brought to hospital for both leg giving way and feeling weaknes. It came about suddenly. SHe denies any trauma, fall , cancer , fever. There was no incontinence or sensory loss in lower extremity. it was no gradual progression either. Patient is almot back to normal, mri of brain and ct of whole spine is normal. Patient is feeling much better and able to walk around , she has stress test for tomorrow patient is going home, no new complain. Her stress test was normal. NEUROLOGICAL EXAMINATOIN Alert oriented x 3, cn all intact motor 5/5 in both upper and lower extremity she has slight sensory dysthesia on left lateral side of thigh and calf( old radiculopathy) reflex are preesnt, right knee is grade and left knee is grade 1 and ankle reflex is diminished slr is negative she is able to walk , difficulty on toes could do partial squat ct of whole spine and mri of brain was unremarkable Assessment/Plan 64 year old female with history of lumbar radiculopathy nad DM, has transient sudden onset both leg weakness wth hyper glycemia ( BS 400S), Most likley it could be transient ischemic due to hyperglycemia, she walking around and back to her normal self Plan: glycemic control - continue spirin and statin -follow up outpatient continue to follow Thnaking you so much Mauricio Rockwell MD
== END 2019-04-19 17:09 | disposition home or self-care (01) | DRG 639 ==
LOC: JER 13:25 → JERBED 19:46 → J4W 23:47
PROVIDERS: ADMIT Internal Medicine; ATTEND Internal Medicine
DX: E11.65 Type 2 diabetes mellitus with hyperglycemia (principal); R55 Syncope and collapse; R79.89 Other specified abnormal findings of blood chemistry; M48.061 Spinal stenosis, lumbar region without neurogenic claudication; M54.16 Radiculopathy, lumbar region; I10 Essential (primary) hypertension; E13.40 Other specified diabetes mellitus with diabetic neuropathy, unspecified; E66.9 Obesity, unspecified; Z68.28 Body mass index [BMI] 28.0-28.9, adult
CPT/HCPCS: 36415; 70450-TC; 70551-TC; 71045-TC-FY; 72125-TC; 72128-TC; 72131-TC; 78452-TC; 80053; 80061; 82550; 82962; 83036; 83721; 83735; 83880; 84100; 84443; 84484; 85025; 85610; 85730; 93005; 93010; 93017; 93306-TC; 93880-TC; 99285-25; A9502; J1644; J2785; J7030

== ENCOUNTER 2023-06-12 09:43 | Emergency (ER) | payer OTHER ==
[2023-06-12 09:48] VITALS: BP 166/82; PULSE 100; RESP 18; TEMP 98.4; BMI 28.0
[2023-06-12] MEDS ORDERED: DIPHTH,PERTUSS(ACELL),TET 0.5 ML DISP.SYRIN IM ONE (10:17)
[2023-06-12] MEDS ORDERED: ACETAMINOPHEN 325 MG TABLET (FP) ONE (10:21)
[2023-06-12] MEDS: DIPHTH,PERTUSS(ACELL),TET 0.5 ML DISP.SYRIN IM ONE (10:25)
[2023-06-12] MEDS: ACETAMINOPHEN 325 MG TABLET (FP) PO ONE (10:25)
[2023-06-12] MEDS ORDERED: LIDOCAINE HCL 1%, 10 MG/ML (20ML VIAL) ONE (11:37)
[2023-06-12] MEDS: LIDOCAINE HCL 1%, 10 MG/ML (50 mL VIAL) INF ONE (12:29)
== END 2023-06-12 14:56 | disposition home or self-care (01) ==
LOC: JER 09:43
PROC: 0HQ1XZZ Repair Face Skin, External Approach (ICD-10-PCS; principal; 2023-06-12)
PROC: 3E0234Z Introduction of Serum, Toxoid and Vaccine into Muscle, Percutaneous Approach (ICD-10-PCS; 2023-06-12)
DX: S01.511A Laceration without foreign body of lip, initial encounter (principal); S01.21XA Laceration without foreign body of nose, initial encounter; R53.1 Weakness; W18.39XA Other fall on same level, initial encounter
CPT/HCPCS: 12014; 70450-TC; 70486-TC; 72125-TC; 90471; 90715; 99284-25

== ENCOUNTER 2023-06-19 10:12 | Emergency (ER) | payer OTHER ==
[2023-06-19 10:18] VITALS: BP 165/73; PULSE 82; RESP 18; TEMP 97.7; BMI 27.3
== END 2023-06-19 11:23 | disposition home or self-care (01) ==
LOC: JER 10:12 → JERFT 10:12
DX: Z48.02 Encounter for removal of sutures (principal)
CPT/HCPCS: 99283-25

== ENCOUNTER 2024-03-16 10:10 | Inpatient (IN) | payer OTHER ==
[2024-03-16 10:19] VITALS: RESP 18
[2024-03-16] MEDS ORDERED: morphine SULFATE 4 MG/ML VIAL ONE ×2 (11:19→16:46)
[2024-03-16] MEDS: morphine CARPU-JECT 4 MG/1 ML DISP.SYRIN IVPUSH ONE ×2 (12:01→16:54)
[2024-03-16 12:11] LABS: BASO % 0.8 % (0-2.0); EOS % 0.8 % (0-4.5); HEMATOCRIT 34.1 % (32.4-45.2); LYMPH % 17.9 % (8-40); MCH 26.4 pg (25.7-33.7); MCHC 32.2 g/dl (32.0-36.0); MEAN CELL VOLUME 81.9 fl (80-96); MONO % 8.2 % (3.8-10.2); NEUT % 72.3 % (42.8-82.8); PLATELET COUNT 341 10^3/uL (134-434); RBC 4.17 M/mm3 (3.60-5.2); RDW 14.8 % (11.6-15.6); WHITE BLOOD COUNT 7.9 K/mm3 (4.0-10.0)
[2024-03-16 12:32] LABS: POTASSIUM 4.5 mmol/L (3.5-5.1)
[2024-03-16 12:34] LABS: ALBUMIN 4.5 g/dl (3.4-5.0); CALCIUM 10.2 mg/dL (8.5-10.1)
[2024-03-16 12:38] LABS: CREATININE 1.7 mg/dL (0.55-1.3)
[2024-03-16 12:39] LABS: BILIRUBIN,TOTAL 0.6 mg/dL (0.2-1); TOT PROT 7.4 g/dl (6.4-8.2)
[2024-03-16] MEDS ORDERED: SODIUM CHLORIDE 0.45% 500 ML IV SCH (17:45)
[2024-03-16 20:41] VITALS: BMI 25.6
[2024-03-16] MEDS: ACETAMINOPHEN 1000 MG/100 ML BAG IVPB PRN (21:25)
[2024-03-16] MEDS: SODIUM CHLORIDE 0.45% 1,000 ML IV SCH (21:45)
[2024-03-16] MEDS: HEPARIN NA (PORCINE) 5,000 UNITS/ML 1ML VIAL SQ SCH (21:49)
[2024-03-17 08:50] LABS: POTASSIUM 4.7 mmol/L (3.5-5.1)
[2024-03-17 08:52] LABS: BASO % 0.9 % (0-2.0); CALCIUM 9.3 mg/dL (8.5-10.1); EOS % 5.2 % (0-4.5); HEMATOCRIT 30.7 % (32.4-45.2); LYMPH % 23.9 % (8-40); MCH 26.6 pg (25.7-33.7); MCHC 32.5 g/dl (32.0-36.0); MEAN CELL VOLUME 82.1 fl (80-96); MEAN PLT VOLUME 7.3 fl (7.5-11.1); MONO % 10.9 % (3.8-10.2); NEUT % 59.1 % (42.8-82.8); PLATELET COUNT 282 10^3/uL (134-434); RBC 3.74 M/mm3 (3.60-5.2); RDW 14.4 % (11.6-15.6); WHITE BLOOD COUNT 7.3 K/mm3 (4.0-10.0)
[2024-03-17 08:53] LABS: ALBUMIN 3.8 g/dl (3.4-5.0); BLOOD UREA NITROGEN 40.7 mg/dL (7-18); MAGNESIUM 2.2 mg/dL (1.8-2.4)
[2024-03-17 08:56] LABS: CREATININE 1.6 mg/dL (0.55-1.3)
[2024-03-17 08:57] LABS: BILIRUBIN,TOTAL 0.5 mg/dL (0.2-1); TOT PROT 6.5 g/dl (6.4-8.2)
[2024-03-17] MEDS: traMADol HCL 50 MG TABLET PO PRN (09:34)
[2024-03-17] MEDS ORDERED: FUROSEMIDE 20 MG TABLET (FP) PO SCH (10:00)
[2024-03-17] MEDS ORDERED: LOSARTAN POTASSIUM 50 MG TABLET PO SCH (10:00)
[2024-03-17] MEDS: INSULIN ASPART SLIDING SCALE (NOVOLOG) 1 VIAL SQ SCH (11:17)
[2024-03-17] MEDS: PANTOPRAZOLE 40 MG TABLET PO SCH (11:33)
[2024-03-17] MEDS ORDERED: LOSARTAN POTASSIUM 50 MG TABLET PO ONE (19:16)
[2024-03-17] MEDS: hydrALAZINE HCL 10 MG TABLET PO ONE (20:28)
[2024-03-17 22:20] LABS: EPI CELLS 15 /uL (0-25.1); HYALINE CASTS 0 /uL (0-3.1); URINE APPEARANCE CLOUDY; URINE BACTERIA 154 /uL (0-1359); URINE BILIRUBIN NEGATIVE (NEGATIVE); URINE COLOR YELLOW; URINE GLUCOSE (UA) NEGATIVE (NEGATIVE); URINE KETONE TRACE (NEGATIVE); URINE LEUK ESTERASE 2+ (NEGATIVE); URINE NITRITE NEGATIVE (NEGATIVE); URINE PROTEIN TRACE (NEGATIVE); URINE UROBILINOGEN 0.2 mg/dL (0.2-1.0); URINE WBC 1675 /uL (0-25.8)
[2024-03-17 23:03] LABS: URINE RBC 80.7 /uL (0-23.9)
[2024-03-18] MEDS: LIDOCAINE HCL 2% JELLY 6 ML TP ONE (06:49)
[2024-03-18 10:07] LABS: BASO % 0.8 % (0-2.0); EOS % 1.9 % (0-4.5); HEMATOCRIT 30.1 % (32.4-45.2); HEMOGLOBIN 9.8 GM/dL (10.7-15.3); LYMPH % 14.9 % (8-40); MCH 26.7 pg (25.7-33.7); MCHC 32.6 g/dl (32.0-36.0); MEAN CELL VOLUME 81.8 fl (80-96); MEAN PLT VOLUME 7.5 fl (7.5-11.1); MONO % 7.2 % (3.8-10.2); NEUT % 75.2 % (42.8-82.8); PLATELET COUNT 312 10^3/uL (134-434); RBC 3.68 M/mm3 (3.60-5.2); RDW 14.7 % (11.6-15.6)
[2024-03-18 10:26] LABS: POTASSIUM 4.4 mmol/L (3.5-5.1)
[2024-03-18 10:28] LABS: BLOOD UREA NITROGEN 37.5 mg/dL (7-18); CALCIUM 9.4 mg/dL (8.5-10.1)
[2024-03-18 10:32] LABS: CREATININE 1.4 mg/dL (0.55-1.3)
[2024-03-18 10:34] LABS: BILIRUBIN,TOTAL 0.5 mg/dL (0.2-1); TOT PROT 7.2 g/dl (6.4-8.2)
[2024-03-18] MEDS: LACTATED RINGERS SOLUTION 1,000 ML/1,000 ML INFUS.BAG IV SCH (12:12)
[2024-03-18] MEDS: sitaGLIPtin PHOSPHATE 50 MG TABLET PO SCH (12:13)
[2024-03-19 06:35] VITALS: BP 151/76; PULSE 91; TEMP 98.8
[2024-03-19 10:56] LABS: POTASSIUM 4.7 mmol/L (3.5-5.1)
[2024-03-19 10:59] LABS: BLOOD UREA NITROGEN 32.1 mg/dL (7-18); CALCIUM 9.4 mg/dL (8.5-10.1)
[2024-03-19 11:02] LABS: CREATININE 1.2 mg/dL (0.55-1.3)
== END 2024-03-19 14:46 | disposition home health service (06) | DRG 683 ==
LOC: JER 10:10 → JERBED 15:14 → J5S 18:37
PROVIDERS: ADMIT Internal Medicine; ATTEND Internal Medicine
DX: N17.9 Acute kidney failure, unspecified (principal); S42.211A Unspecified displaced fracture of surgical neck of right humerus, initial encounter for closed fracture; I10 Essential (primary) hypertension; E11.9 Type 2 diabetes mellitus without complications; F17.210 Nicotine dependence, cigarettes, uncomplicated; D64.9 Anemia, unspecified; W19.XXXA Unspecified fall, initial encounter; Y93.9 Activity, unspecified; Y92.89 Other specified places as the place of occurrence of the external cause; Y99.9 Unspecified external cause status
CPT/HCPCS: 36415; 73030-TC-RT-FY; 73060-TC-RT-FY; 80048; 80053; 81003; 82728; 82962; 83540; 83550; 83735; 84443; 84484; 85025; 99285-25; J0131; J1644